=== PATIENT | female | born 1985 | race Caucasian/White ===

== ENCOUNTER → 2018-04-17 | Outpatient (CLI) | payer OTHER | LOC: FIMAGING 09:34 | PROVIDERS: ATTEND Obstetrics & Gynecology | DX: O09.292 Supervision of pregnancy with other poor reproductive or obstetric history, second trimester (principal); O34.219 Maternal care for unspecified type scar from previous cesarean delivery; N20.0 Calculus of kidney; Z3A.19 19 weeks gestation of pregnancy ==

== ENCOUNTER 2018-08-30 18:20 | Inpatient (IN) | payer OTHER ==
[2018-08-30] MEDS ORDERED: BUPIVACAINE 0.25% 10 ML SDV ONE (18:57)
[2018-08-30] MEDS ORDERED: OLIVE OIL 118 ML BTL MISC PRN (18:59)
[2018-08-30] MEDS ORDERED: LR 1,000 ML IV PRN (18:59)
[2018-08-30] MEDS ORDERED: IBUPROFEN 600 MG TAB PO PRN (18:59)
[2018-08-30] MEDS ORDERED: LIDOCAINE 1% 300 MG/30 ML SDV SC PRN (18:59)
[2018-08-30] MEDS ORDERED: EPSOM SALT 454 GM TP PRN (18:59)
[2018-08-30] MEDS ORDERED: OXYTOCIN/RINGERS LACTATE 1,000 ML IV PRN (18:59)
[2018-08-30] MEDS ORDERED: MISOPROSTOL 200 MCG TAB PR PRN (18:59)
[2018-08-30 19:14] LABS: PLATELET COUNT 348 10^3/uL (150-400)
--- NOTE | 2018-08-30 19:15 | GHP ---
[f rep st] PREOP HISTORY AND PHYSICAL DATE OF ADMISSION: 08/30/2018 ADMITTING DIAGNOSIS: Intrauterine at 38 and 6/7 weeks' gestation, in active labor. HISTORY OF PRESENT ILLNESS: The patient is a 32-year-old 4, para 2-0-1- 2, with a last menstrual period of 12/01/2017, and an EDC of 09/07/2018, which was confirmed by a first-trimester ultrasound. She presented complaining of active labor contractions beginning in the evening of the , increasing in intensity. When she presented to labor and delivery, she was hansa every 2 minutes. heart tones were 130s, reactive, moderate variability, and her cervix was 7 cm, 80%, -2, and cephalic. The patient is requesting an epidural for pain control and wishes to have a vaginal delivery if possible. The patient's risk factors are significant for anxiety disorder. She is on Zoloft 100 mg daily, and she is stable. She had a history of with her second baby after an induction of labor at 37 weeks for intrauterine growth restriction and intolerance to labor. She had a successful vaginal delivery with her first baby and wishes to have a vaginal delivery with this baby. She has an 87% success rate on her nomogram. She has a history of nephrolithiasis and passed a stone in this . She was treated with Flomax, saw Urology, and Urology recommends further workup . History of IUGR with her second baby. This baby is well grown and she has a history of anemia. PAST OBSTETRICAL HISTORY: January of 2013: Viable male, 7 pounds 15 ounces, 41 weeks, vaginal delivery without complications, less than 4 hours of labor. October of 2014: A missed at 8 weeks, had a D and C without complication. In November 2015, female induction of labor at 39 weeks secondary to IUGR. Baby had intolerance to labor, severe decelerations. She had a . Baby weighed 6 pounds 4 ounces. She had an extension into her lower cervix from that . No other complications. No other surgeries. PAST GYNECOLOGICAL HISTORY: Menarche at age 15, interval every 28 days, last menstrual period of December 01, 2017. No significant gynecological problems. Did have 1 abnormal Pap. Had a colpo in 2006. No abnormal Paps since. SIGNIFICANT MEDICAL HISTORY: Anxiety. She takes Zoloft. Nephrolithiasis. PAST SURGICAL HISTORY: Cholecystectomy. ALLERGIES: She has no known drug allergies. MEDICATIONS: Include Zoloft 200 mg daily, vitamins with DHA, and Zyrtec p.r.n. LABS IN THIS : She is A positive, antibody negative, RPR nonreactive, rubella immune, hepatitis negative, HIV negative. Urine drug screen was negative. Pap normal. Gonorrhea and chlamydia normal. 1-hour GTT 121. GBS was negative. Varicella was immune. She declined genetic screening tests. SOCIAL HISTORY: She is . She lives with her and her 2 children. He works at the lab here at [facility]. She is a home health nurse. She denies tobacco, alcohol, and drug use. FAMILY HISTORY: Father and a paternal grandfather had heart attacks and heart disease. Mother has hypertension, maternal grandfather as well. Paternal grandmother had a stroke. Brother had a seizure disorder. PHYSICAL EXAMINATION: VITAL SIGNS: She is afebrile. Vital signs are stable. GENERAL: heart tones 130s, reactive moderate variability, category 1. She is hansa every 2 minutes. Cervix is 7, 80, -2. She is intact. ASSESSMENT AND PLAN: A 32-year-old 4, para 2-0-1-2 at 38 and 6/7 weeks ' gestation, in active labor. Patient wishes to have an epidural. When she is comfortable, I will offer her artificial rupture of membranes and active labor management. status is reassuring. /[id number]/MODL MTDD
--- NOTE | 2018-08-30 19:25 | PDANEPAE ---
ANE Past Medical History - Cardiovascular History Hx Hypertension: No Hx Arrhythmias: No Hx Chest Pain: No - Pulmonary History Hx COPD: No Hx Asthma/Reactive Airway Disease: No Hx Recent Upper Respiratory Infection: No Hx Sleep Apnea: No - Neurologic History Hx Cerebrovascular Accident: No - Endocrine History Hx Diabetes: No - Renal History Hx Renal Disorders: No - Liver History Hx Hepatic Disorders: No - Neurological & Psychiatric Hx Hx Neurological and Psychiatric Disorders: Yes Neurological / Psychiatric History Comment: On Zoloft HUMBERTO Review of Systems Review of Systems: ANE Patient History - Allergies Allergies/Adverse Reactions: No Known Allergies Allergy (Unverified 11/19/15 07:19) - Home Medications Home Medications: 1 cap PO DAILY10 11/19/15 [Last Taken 11/19/15] Zoloft 100mg (RX) PO DAILY20 11/19/15 [Last Taken 11/19/15] - Smoking Hx Smoking Status: Never smoked HUMBERTO Labs/Vital Signs - Labs Result Diagrams: 08/30/18 18:45 - Vital Signs Height: 172.72 cm Weight: 93.509 kg HUMBERTO Physical Exam - Airway Neck exam: FROM Mallampati Score: Class 2 Mouth exam: normal dental/mouth exam - Pulmonary Pulmonary: no respiratory distress, no rales or rhonchi, clear to auscultation - Cardiovascular Cardiovascular: regular rate and rhythym, no murmur, rub, or gallop - ASA Status ASA Status: II, E HUMBERTO Anesthesia Plan Anesthesia Plan: epidural
[2018-08-30] MEDS ORDERED: NALOXONE HCL 0.4 MG/ML INJ IVP PRN (19:26)
[2018-08-30] MEDS ORDERED: PHENYLEPHRINE HCL 100 MCG/ML SYR IVP PRN (19:26)
[2018-08-30] MEDS ORDERED: ONDANSETRON 4 MG/2 ML VIAL IVP PRN (19:26)
[2018-08-30] MEDS ORDERED: fentaNYL 2MCG/ML/BUP 0.1% RTU 100 ML EP SCH (19:30)
--- NOTE | 2018-08-30 20:26 | OBPROG ---
Labor Progress Note Assessment/Plan: Assessment: 32 y/o @ 385/7 weeks Plan: Will begin pushing soon. 08/30/18 20:28 Subjective/Intrapartum Course: 08/30/18 20:22 Pt is finally comfortable with her epidural. She is beginning to feel rectal pressure with contractions. Objective: 08/30/18 18:45 Patient ABO/Rh A POSITIVE 08/30/18 18:45 - SVE Dilation (cm): 10 Effacement (%): 100 Station: +2 Membranes: AROM Amniotic Fluid Color: Clear - Contraction Pattern Assessment Current Contraction Pattern: Regular (Q 2) - FHR Assessment Lester FHR (bpm): 140 FHR Pattern Variability: Moderate FHR Category: 1 - Procedures Non-surgical Procedures: Amniotomy - AP Antepartum Course: 08/30/18 20:27 H/o c section with G3 secondary to intolerance to labor, IOL secondary to IUGR Oxytocin Orders Assessment - Pre-Induction/Augmentation Assessment Gestational Age: 38 week(s) and 6 day(s) ICD10 Worksheet Patient Problems: Problems Problem Status Onset iol for sga Acute
[2018-08-30] MEDS ORDERED: LIDOCAINE 1% 300 MG/30 ML SDV ONE (20:34)
[2018-08-30] MEDS ORDERED: AMMONIA AROMATIC 1 EACH AMP IH ONE (20:35)
[2018-08-30] MEDS ORDERED: OXYTOCIN 10 UNIT/ML VIAL ONE (20:35)
[2018-08-30] MEDS ORDERED: OLIVE OIL 118 ML BTL MISC ONE (20:35)
[2018-08-30] MEDS ORDERED: TERBUTALINE SULFATE 1 MG/ML VIAL ONE (20:35)
[2018-08-30] MEDS ORDERED: MISOPROSTOL 200 MCG TAB ONE (20:35)
[2018-08-30] MEDS ORDERED: HYDROCORTISONE 0.5% CREAM TP PRN (21:30)
[2018-08-30] MEDS ORDERED: DOCUSATE SODIUM 100 MG CAP PO PRN (21:30)
[2018-08-30] MEDS ORDERED: SIMETHICONE 80 MG TAB CHEW PO PRN (21:30)
[2018-08-30] MEDS ORDERED: oxyCODONE IR 5 MG TAB PO PRN (21:30)
--- NOTE | 2018-08-30 21:35 | OBDEL ---
Info Type: Vaginal Presentation at Delivery: Vertex L&D Analgesia/Anesthesia Type: Epidural GBS+: No Intrapartum Medications: Generic Name Dose Route Start Last Admin Trade Name Freq PRN Reason Stop Dose Admin Lactated Ringer's 1,000 mls @ 0 mls/hr 08/30/18 18:59 08/30/18 19:00 Lr IV 08/31/18 18:58 1,000 mls PRN PRN Administration SEE PROTOCOL CONDITIONS Protocol Per Protocol Discontinued Medications Generic Name Dose Route Start Last Admin Trade Name Freq PRN Reason Stop Dose Admin Oxytocin/Lactated Ringer's 1,000 mls @ 125 mls/hr 08/30/18 18:59 08/30/18 21: 14 Pitocin 20 Units/Lr (Premix) IV 1,000 mls PRN PRN Administration Post bleeding - Hospital Course Intrapartum: 08/30/18 20:22 Pt is finally comfortable with her epidural. She is beginning to feel rectal pressure with contractions. Indications for Delivery: Spontaneous Labor Vaginal Delivery - Delivery Provider Delivery Physician/CNM: Osiris Garcia - Labor and Delivery Onset of Contractions Date: 08/30/18 Onset of Contractions Time: 15:30 Onset of Contractions Type: Spontaneous Rupture of Membranes Date: 08/30/18 Rupture of Membranes Time: 15:30 Rupture of Membranes Type: Artificial Amniotic Fluid Color: Clear Dilation Complete Date: 08/30/18 Dilation Complete Time: 15:30 Placenta Delivery Date: 08/30/18 Placenta Delivery Time: 21:14 Total Hours of Labor: 5 Non-surgical Procedures: Amniotomy Laceration: 1st Degree, Other (Specify) (left vaginal sulcus) Repair: 2-0, Vicryl Vaginal Sponge Count Correct: Yes Vaginal Needle Count Correct: Yes Vaginal Sweep Performed: Yes EBL: 300 Delivery Events: None - Medications Labor Augmentation/Induction Methods Used: None [place] Data CANDICE: 09/07/18 Gestational Age: 38 week(s) and 6 day(s) Lester Delivery Date: 08/30/18 Delivery Time: 21:07 Sex of Infant: Female Score (1 Min): 8 Score (5 Min): 8 ICD10 Worksheet Patient Problems: Problems Problem Status Onset (spontaneous vaginal delivery) Acute iol for sga Acute - ICD10 Problem Qualifiers (1) (spontaneous vaginal delivery)
[2018-08-30] MEDS: IBUPROFEN 600 MG TAB PO PRN (23:19)
[2018-08-31] MEDS: ACETAMINOPHEN 325 MG TAB PO PRN ×4 (02:19→21:30)
[2018-08-31] MEDS: IBUPROFEN 600 MG TAB PO PRN ×3 (05:29→18:22)
[2018-08-31] MEDS: FERRO-SEQUELS 65 MG TAB.ER PO SCH (08:09)
[2018-08-31] MEDS: SERTRALINE HCL 100 MG TAB PO SCH (08:09)
--- NOTE | 2018-08-31 14:41 | OBPP ---
Progress Note Assessment/Plan: Assessment: PPD 1 s/p mild anemia Plan: routine care, iron daily 08/31/18 14:39 Subjective/ Course: 08/31/18 14:39 Pt doing well. Bld is lessened. mod cramps - ok with ibu. urinating fine, baby has worked on BF and latch seems ok but baby sleepy. Objective: 08/31/18 05:40 Patient ABO/Rh A POSITIVE 08/30/18 18:45 Temp Pulse Resp BP Pulse Ox 36.3 C 77 18 123/81 H 99 08/31/18 08:00 08/31/18 08:00 08/31/18 08:00 08/31/18 08:00 08/31/18 08:00 Uterine Position/Fundal Height: Umbilicus -2 Uterine Tone: Firm Physical Exam - Physical Exam Abdomen: non-tender, soft, other (FF at umb -2) Extremities: non-tender, pedal edema (minimal) Skin: normal color, warm/dry Neuro/Psych: alert, normal mood/affect
--- NOTE | 2018-08-31 16:06 | POSTANESTH ---
Post Anesthetic Evaluation Cardiovascular Status: Normal, Stable, Similar to Pre-Op Cond Respiratory Status: Normal, Stable, Similar to Pre-op Cond. Level of Consciousness/Mental Status: Can Participate in Eval, Alert and Oriented Pain Control: Adequate, Prn Tx Ordered Nausea/Vomiting Control: Adequate, Prn Tx Ordered Complications Possibly Related to Anesthesia: None Noted Notes: Pt seen and examined. BAck site c/d/i, no e/e/e. Able to ambulate- block has resolved. Denies avelar/n/v/pruritis.
[2018-09-01] MEDS: IBUPROFEN 600 MG TAB PO PRN ×2 (00:38→08:48)
[2018-09-01] MEDS: ACETAMINOPHEN 325 MG TAB PO PRN (03:27)
[2018-09-01 08:36] VITALS: BP 125/86
[2018-09-01] MEDS: SERTRALINE HCL 100 MG TAB PO SCH (08:48)
[2018-09-01] MEDS: FERRO-SEQUELS 65 MG TAB.ER PO SCH (08:48)
--- NOTE | 2018-09-01 11:54 | OBGCSDC ---
General Delivery Information - General Info : 4 Para: 3 Abortions: 1 Type: Vaginal L&D Analgesia/Anesthesia Type: Epidural Admission Date: 08/30/18 Labs: Patient ABO/Rh A POSITIVE 08/30/18 18:45 Hct 35.1 % (38.0-47.0) L 08/31/18 05:40 - Hospital Course Antepartum: 08/30/18 20:27 H/o c section with G3 secondary to intolerance to labor, IOL secondary to IUGR Intrapartum: 08/30/18 20:22 Pt is finally comfortable with her epidural. She is beginning to feel rectal pressure with contractions. : 08/31/18 14:39 Pt doing well. Bld is lessened. mod cramps - ok with ibu. urinating fine, baby has worked on BF and latch seems ok but baby sleepy. Vaginal - Delivery Provider Delivery Physician/CNM: Osiris Garcia - Diagnosis Labor: Spontaneous Rupture of Membranes Type: Artificial Amniotic Fluid Color: Clear Laceration: 1st Degree, Other (Specify) (left vaginal sulcus) Repair: 2-0, Vicryl Delivery Events: None - Procedures Non-surgical Procedures: Amniotomy - Delivery Non-surgical Procedures: Amniotomy EBL: 300 Data CANDICE: 09/07/18 Gestational Age: 39 week(s) and 4 day(s) Lester Delivery Date: 08/30/18 Delivery Time: 21:07 Sex of Infant: Female Weight (gm): 3750 g Score (1 Min): 8 Score (5 Min): 8 Discharge Information - Discharge Information Prescriptions: Sertraline HCl [Zoloft 100mg (*)] 100 mg PO DAILY #30 tab Condition: Good Instruction/Follow Up: See Instruction Sheet, Four Weeks, Six Weeks (Mood check 4 wks, PP 6 wks)
--- NOTE | 2018-09-01 11:54 | OBPP ---
Progress Note Assessment/Plan: Assessment: PPD 2 s/p mild anemia doing great - home today Subjective/ Course: Doing great - ready for home. Objective: 08/31/18 05:40 Patient ABO/Rh A POSITIVE 08/30/18 18:45 Temp Pulse Resp BP Pulse Ox 36.2 C 60 16 125/86 H 97 09/01/18 08:35 09/01/18 08:35 09/01/18 08:35 09/01/18 08:35 09/01/18 08:35 Uterine Position/Fundal Height: Umbilicus -2 Uterine Tone: Firm
== END 2018-09-01 12:15 | disposition home or self-care (01) | DRG 807 ==
LOC: FLD 18:20 → FOB 08-31
PROVIDERS: ADMIT Obstetrics & Gynecology; ATTEND Obstetrics & Gynecology
PROC: 0HQ9XZZ Repair Perineum Skin, External Approach (ICD-10-PCS; principal; 2018-08-30)
PROC: 10E0XZZ Delivery of Products of Conception, External Approach (ICD-10-PCS; principal; 2018-08-30)
DX: O34.211 Maternal care for low transverse scar from previous cesarean delivery (principal); O70.0 First degree perineal laceration during delivery; O99.344 Other mental disorders complicating childbirth; O99.02 Anemia complicating childbirth; D64.9 Anemia, unspecified; F41.9 Anxiety disorder, unspecified; Z87.442 Personal history of urinary calculi; Z3A.38 38 weeks gestation of pregnancy; Z37.0 Single live birth
CPT/HCPCS: J2590; J3105

== ENCOUNTER → 2018-09-05 | Outpatient (CLI) | payer OTHER | LOC: FLACT 11:48 | PROVIDERS: ATTEND Obstetrics & Gynecology | DX: Z39.1 Encounter for care and examination of lactating mother (principal) | CPT/HCPCS: G0463 ==